=== PATIENT | female | born 1965 | race Caucasian/White ===

== ENCOUNTER 2019-03-24 09:07 | Day surgery (SDC) | payer MEDICAID ==
[~2019-03-24 09:07] MED LIST: Lactated Ringers 1,000 ML IV SCH; Lidocaine 1%/Sod Bicarbonate in NS 8.4% 1 ML Syringe IDERM PRN; Sodium Chloride 0.9% 10 ML Syringe FLUSH PRN
[2019-03-24] MEDS ORDERED: Triamcinolone Acetonide 40 MG/ML 1 ML MDV ONE ×2 (09:54→09:58)
[2019-03-24] MEDS ORDERED: Albuterol 0.083% 2.5 MG/3 ML Neb Soln NEB SCH ×2 (10:05→14:00)
--- NOTE | 2019-03-24 10:29 | PCM.PREANE ---
Preanesthetic Assessment - Procedure Proposed Procedure: right claw toe correction with bilateral steroid knee injections - Anesthesia/Transfusion/Family Hx Family History of Anesthesia Reaction: No Transfusion History: No Prior Transfusion(s) - Review of Systems General: No Symptoms Pulmonary: No Symptoms Cardiovascular: No Symptoms Gastrointestinal: No Symptoms Neurological: No Symptoms Other: Reports: Depression, Anxiety - Physical Assessment NPO Status Date: 03/23/19 NPO Status Time: 23:20 Vital Signs: Last Vital Signs Temp Pulse Resp BP Pulse Ox 96 03/24/19 10:13 97.8 86 96% 18 115/79 Height: 5 ft 2 in Weight: 102.8 kg ASA Class: 2 Mental Status: Alert & Oriented x3 Airway Class: Mallampati = 1 Dentition: Reports: Broken Tooth/Teeth, Missing Tooth/Teeth Thyro-Mental Finger Breadths: 3 Mouth Opening Finger Breadths: 3 ROM/Head Extension: Full Lungs: Clear to Auscultation, Normal Respiratory Effort Cardiovascular: Regular Rate, Regular Rhythm - Lab Values: Laboratory Last Values MRSA (PCR) Positive H 03/16/19 14:30 - Allergies Allergies/Adverse Reactions: Allergies Allergy/AdvReac Type Severity Reaction Status Date / Time No Known Allergies Allergy Verified 03/23/19 12:44 - Blood Blood Available: No - Acknowledgements Anesthesia Type Planned: General Anesthesia, Spinal Pt an Appropriate Candidate for the Planned Anesthesia: Yes Alternatives and Risks of Anesthesia Discussed w Pt/Guardian: Yes Pt/Guardian Understands and Agrees with Anesthesia Plan: Yes PreAnesthesia Questionnaire HEENT History: Reports: Other (See Below) Other HEENT History: eustachian tube dysfunction Cardiovascular History: Reports: High Cholesterol Respiratory History: Reports: Other (See Below) Other Respiratory History: bronchitis, cough, URI Gastrointestinal History: Reports: Chronic Diarrhea, Irritable Bowel Syndrome Genitourinary History: Reports: None NANOTECHNOLOGY TECHNICIAN History: Reports: None Musculoskeletal History: Reports: Osteoarthritis Other Musculoskeletal History: right wrist tendonitits Neurological History: Reports: MS Psychiatric History: Reports: Anxiety, Depression, Other (See Below) Other Psychiatric History: ETOH abx Endocrine/Metabolic History: Reports: None Hematologic History: Reports: Other (See Below) Other Hematologic History: abnormal CBC Immunologic History: Reports: None Oncologic (Cancer) History: Reports: None Dermatologic History: Reports: Other (See Below) Other Dermatologic History: boil to groin - Past Surgical History Head Surgeries/Procedures: Reports: None HEENT Surgical History: Reports: Tonsillectomy Cardiovascular Surgical History: Reports: None Respiratory Surgical History: Reports: None GI Surgical History: Reports: Cholecystectomy, Colonoscopy Female Surgical History: Reports: None Male Surgical History: Reports: None Endocrine Surgical History: Reports: None Neurological Surgical History: Reports: None Musculoskeletal Surgical History: Reports: None Oncologic Surgical History: Reports: None - SUBSTANCE USE Smoking Status *Q: Current Every Day Smoker Tobacco Use Within Last Twelve Months: Cigarettes Second Hand Smoke Exposure: Yes Days Per Week of Alcohol Use: 0 (etoh in past) Recreational Drug Use History: No - HOME MEDS Home Medications: Home Meds Colestipol HCl 2 gm PO BID 03/23/19 [History] DULoxetine HCl [Duloxetine HCl] 30 mg PO DAILY 03/23/19 [History] DULoxetine HCl [Duloxetine HCl] 60 mg PO DAILY 03/23/19 [History] Fluticasone Propionate [Flonase] 1 dose NASBOTH BID 03/23/19 [History] buPROPion [Wellbutrin SR] 150 mg PO DAILY 03/23/19 [History] traZODone HCl [Trazodone HCl] 100 mg PO BEDTIME 03/23/19 [History] Acetaminophen/HYDROcodone [[place] 325-5 MG] 1 - 2 tab PO Q6H PRN #30 tablet 03/24 [Rx] Aspirin 325 mg PO BID #84 tab 03/24/19 [Rx] - CURRENT (IN HOUSE) MEDS Current Meds: Current Medications Albuterol (Proventil Neb Soln) 2.5 mg NEB ONETIME JOSE Stop: 03/24/19 12:00 Last Admin: 03/24/19 10:13 Dose: 2.5 mg Lactated Ringer's (Ringers, Lactated) 1,000 mls @ 125 mls/hr IV ASDIRECTED JOSE Stop: 03/24/19 23:00 Vancomycin HCl 1.5 gm/ Sodium (Chloride) 250 mls @ 250 mls/hr IV ONETIME JOSE Lidocaine/Sodium Bicarbonate (Buffered Lidocaine 1% In Ns 8.4%) 0.25 ml IDERM ONETIME PRN PRN Reason: Prior to IV Start Stop: 03/24/19 18:00 Sodium Chloride (Saline Flush) 10 ml FLUSH ASDIRECTED PRN PRN Reason: Keep Vein Open Stop: 03/24/19 18:00 Discontinued Medications Bupivacaine HCl (Sensorcaine-Mpf 0.25%) Confirm Administered Dose 30 ml .ROUTE .STK-MED ONE Stop: 03/24/19 09:55 Triamcinolone Acetonide (Kenalog-40) Confirm Administered Dose 80 mg .ROUTE .STK -MED ONE Stop: 03/24/19 09:55 Triamcinolone Acetonide (Kenalog-40) Confirm Administered Dose 80 mg .ROUTE .STK -MED ONE Stop: 03/24/19 09:59
[2019-03-24] MEDS ORDERED: Vancomycin 1.5 GM in Sodium Chloride 0.9% 500 ML IV SCH (11:00)
[2019-03-24] MEDS ORDERED: Ondansetron 4 MG/2 ML SDV ONE (11:17)
[2019-03-24] MEDS ORDERED: Lidocaine 1% 4 ML ONE (11:17)
[2019-03-24] MEDS ORDERED: fentaNYL 100 MCG/2 ML SDV ONE (11:18)
[2019-03-24] MEDS ORDERED: Propofol 200 MG/20 ML SDV ONE (11:18)
[2019-03-24] MEDS ORDERED: Midazolam 1 MG/ML 2 ML SDV ONE (11:18)
[2019-03-24] MEDS ORDERED: fentaNYL 100 MCG/2 ML SDV IVPUSH PRN ×2 (11:43→13:55)
[2019-03-24] MEDS: Bupivacaine 0.25% 10 ML SDV ONE ×3 (12:44→13:27)
[2019-03-24] MEDS ORDERED: Albuterol 6.7 GM Inhaler INH ONE (12:47)
[2019-03-24] MEDS ORDERED: Ketamine 500 mg/10 ML MDV ONE (12:53)
--- NOTE | 2019-03-24 13:36 | CR ---
Right forefoot: Four fluoroscopic spot views of the right foot were obtained utilizing C-arm device. Study centered to the second toe. Study shows resection of portion of the distal end of the proximal phalanx of the second toe. Longitudinal pin is noted throughout the left second toe. Fluoroscopy time is given as 9.6 seconds. Impression: 1. Procedural study as noted above. Diagnostic code #2
[2019-03-24] MEDS ORDERED: Albuterol 0.083% 2.5 MG/3 ML Neb Soln NEB PRN (13:52)
[2019-03-24] MEDS ORDERED: Ondansetron 4 MG/2 ML SDV IVPUSH ONE (13:53)
--- NOTE | 2019-03-24 13:53 | PCM.POSTAN ---
POST ANESTHESIA ASSESSMENT - MENTAL STATUS Mental Status: Alert, Oriented - VITAL SIGNS Vital Signs: Last Vital Signs Temp 36.6 C 03/24/19 09:30 Pulse 86 03/24/19 09:30 Resp 18 03/24/19 09:30 BP 115/79 03/24/19 09:30 Pulse Ox 96 03/24/19 10:13 - RESPIRATORY Respiratory Status: Respiratory Rate WNL, Airway Patent, Supplemental Oxygen - CARDIOVASCULAR CV Status: Pulse Rate WNL, Blood Pressure Stable - GASTROINTESTINAL GI Status: No Symptoms - PAIN Pain Score: 5 - POST OP HYDRATION Hydration Status: Adequate & Stable (Patient has pulmonology deficiency that may require follow-up for PFTs.)
[2019-03-24] MEDS ORDERED: Acetaminophen/HYDROcodone 325-5 MG Tab PO PRN (13:58)
--- NOTE | 2019-03-24 14:32 | PCM48HPAN ---
Post Anesthesia Note - EVALUATION WITHIN 48HRS OF ANESTHETIC Vital Signs in Normal Range: Yes Patient Participated in Evaluation: Yes Respiratory Function Stable: Yes Airway Patent: Yes Cardiovascular Function Stable: Yes Hydration Status Stable: Yes Pain Control Satisfactory: Yes Nausea and Vomiting Control Satisfactory: Yes Mental Status Recovered: Yes Vital Signs: Last Vital Signs Temp 36.6 C 03/24/19 14:15 Pulse 87 03/24/19 14:15 Resp 14 03/24/19 14:15 BP 138/93 H 03/24/19 14:15 Pulse Ox 93 L 03/24/19 14:21 - COMMENTS/OBSERVATIONS Free Text/Narrative:: Patient respiratory status at baseline.
--- NOTE | 2019-03-29 10:45 | PCM.OPNOTE ---
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
--- NOTE | 2019-03-29 11:52 | OR ---
DATE OF OPERATION: 03/24/2019 SURGEON: Efrain Carter MD OPERATION PERFORMED: Right 2nd toe claw toe correction with proximal phalanx resection, arthroplasty, and extensor digitorum lengthening with bilateral knee injections. PREOPERATIVE DIAGNOSIS: 1. 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 2. Bilateral knee osteoarthrosis. POSTOPERATIVE DIAGNOSIS: 1. 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 2. Bilateral knee osteoarthrosis. ANESTHESIA: General LMA with local. ANESTHESIA PROVIDER: Sesar Kay. SENIOR STORAGE ADMINISTRATOR: Desi Hinson PA-C. ESTIMATED BLOOD LOSS: Less than 5 mL. COMPLICATIONS: None. CONDITION: Stable. DESCRIPTION OF PROCEDURE: The patient was identified in the preoperative holding area. Proper site was marked and identified by surgeon. The patient was taken back to the operating theater where after adequate anesthesia, a nonsterile tourniquet was applied to the right lower extremity. Right lower extremity was then sterilely prepped and draped in the usual sterile fashion. OR time-out was performed. The patient received 2 g IV Ancef. At this time, right lower extremity was exsanguinated. Tourniquet was insufflated to 250 mmHg. Dorsal incision was made over the proximal phalanx and the interphalangeal joints of the right 2nd toe. This was taken down to the extensor tendon. The extensor tendon then had a Z-lengthening performed and was taken down to the PIP joint. At this time, the proximal phalanx was identified and resection of the proximal phalanx head was undertaken in whole. There was no bony prominences noted, no sharp edges. The toe then had retrograde pinning done all the way back into the metatarsal head in a straightened position making sure to hold the rotation. The extensor tendons were then lengthened and sutured in a position all over the top of the previous resection arthroplasty after adequate saline was irrigated through the wound. Once the toe was straight and showed good adequate position on both AP and lateral views under C-arm fluoroscopy, 4-0 nylon suture was used for the closure of the skin. The patient was placed in a sterile soft dressing and a posterior slab shoe and a walking boot. After this was completed under sterile technique, 2 mL of 40 mg Kenalog and 4 mL of 25% Marcaine were injected into bilateral knees. The patient tolerated all procedures well and sent to PACU in stable condition. MMODAL /[id number]
== END 2019-03-24 15:16 | disposition home or self-care (01) ==
LOC: JD.SDS 09:07
PROVIDERS: ATTEND Orthopaedic Surgery
DX: M20.5X1 Other deformities of toe(s) (acquired), right foot (principal); M17.0 Bilateral primary osteoarthritis of knee; E78.00 Pure hypercholesterolemia, unspecified; F17.210 Nicotine dependence, cigarettes, uncomplicated; F32.9 Major depressive disorder, single episode, unspecified; F41.9 Anxiety disorder, unspecified; G56.03 Carpal tunnel syndrome, bilateral upper limbs; M25.541 Pain in joints of right hand; Z79.82 Long term (current) use of aspirin; Z79.899 Other long term (current) drug therapy
CPT/HCPCS: 20610; 28124; 28313; 76000; 87641; 94640; A9270; C1713; J2001; J2250; J2405; J2704; J3010; J3301; J3370; J3490; J7040; J7120; 01480